=== PATIENT | male | born 1980 ===

== ENCOUNTER 2023-07-12 09:03 | Emergency (ER) | payer OTHER ==
[~2023-07-12] VITALS: Ht 170 cm; Wt 95.0 kg
--- NOTE | 2023-07-12 09:26 | ED GI ---
General Chief Complaint: Abdominal/GI Problems Stated Complaint: ABD PAIN | HERNIA Source of Information: Patient Exam Limitations: No Limitations History of Present Illness Date Seen by Provider: Jul 12, 2023 Time Seen by Provider: 09:24 Initial Comments 6-year-old male presents with concerns of hernia. States he went to a walk-in c linic and was told he has a hernia Francisco plicas. He does have a "Walter "bellybutton. There is no tenderness, no warmth or erythema. Discussed that hernia is more likely just a fat hernia that is reducible patient states he never has problems with reducing it. States 3 days ago he felt a sharp pain to the left of his umbilicus which comes and goes and he was concerned for worsen ing hernia. Exam is benign no evidence of hernia or other significant pathology. Does have some mild discomfort with palpation of the abdominal muscles however this is on the bilateral sides. Patient reassured. Will obtain ultrasound Timing/Duration: 2-3 Days Severity/Quality: Mild Location: Periumbilical Radiation: No Radiation Activities at Onset: None Associated Symptoms: Denies Symptoms Allergies and Home Medications Allergies Coded Allergies: No Known Drug Allergies (Unverified , 07/12/23) Patient Home Medication List Home Medication List Reviewed: Yes Review of Systems Review of Systems Constitutional: no symptoms reported EENTM: No Symptoms Reported Respiratory: No Symptoms Reported Cardiovascular: No Symptoms Reported Gastrointestinal: See HPI, Abdominal Pain Genitourinary: No Symptoms Reported Musculoskeletal: no symptoms reported Skin: no symptoms reported Psychiatric/Neurological: No Symptoms Reported Endocrine: No Symptoms Reported Hematologic/Lymphatic: No Symptoms Reported All Other Systems Reviewed Negative Unless Noted: Yes Past Ojbxwbt-[id number]-Upkyrg Hx Patient Social History Tobacco Use?: No Substance use?: No Alcohol Use?: Yes Alcohol Frequency: Once in a while Past Medical History Surgery/Hospitalization HX: DENIES Physical Exam Vital Signs Vital Signs - First Documented 07/12/23 09:10 Temp 36.8 Pulse 73 Resp 14 B/P (MAP) 121/82 (95) Pulse Ox 97 O2 Delivery Room Air Capillary Refill : Height/Weight/BMI Height: '" Weight: lbs. oz. kg; BMI Method: General Appearance: WD/WN, no apparent distress HEENT: PERRL/EOMI, normal ENT inspection Neck: non-tender, full range of motion, supple, normal inspection Respiratory: chest non-tender, lungs clear, normal breath sounds, no respiratory distress, no accessory muscle use Cardiovascular: normal peripheral pulses, regular rate, rhythm Peripheral Pulses: 2+ Carotid (R), 2+ Carotid (L), 2+ Femoral (R), 2+ Femoral (L), 2+ Dorsalis Pedis (R), 2+ Left Dors-Pedis (L), 2+ Radial Pulses (R), 2+ Radial Pulses (L) Gastrointestinal: normal bowel sounds, soft, no organomegaly, no pulsatile mass, tenderness (Mild to the left of the umbilicus with palpation of the abdominal muscle) Extremities: normal range of motion, non-tender, normal capillary refill Back: normal inspection, no CVA tenderness 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 He states he was told he has a hernia. He has a very small umbilical hernia that is r educible no bowel entrapment no diarrhea or constipation no significant pain no erythema or warmth is consistent with the fact containing hernia. He states he has pain to the left side of his umbilicus and was concerned about this. Pain is reproducible with palpation however I do not appreciate any abnormalities on exam. Exam is equal bilateral to the umbilicus. Feels consistent with abdominal wall muscle. No pain out of proportion to exam. He allows me to palpate both sides of the umbilicus as well as the umbilicus without distress. No nausea vomiting no other complaints. We will obtain a limited abdominal ultrasound for the patient. States he was told at the walk-in clinic that he has a hernia again this is very mild fat-containing umbilical hernia. He states he felt a sharp pain transiently over the past 3 days it comes and goes no change with bowel movement no problems urinating again no nausea or vomiting no warmth or concern for incarceration or entrapment. Ultrasound negative for acute pathology will discharge home at this time. Advised he is waiting to get a primary care appointment for surgical referral. Advised him he would not need emergent surgery at this time and more than likely will just be monitored, patient is reassured and agrees with plan for ultrasound and discharge. 0948 ultrasound shows a small amount of fluid collection no hernia nothing coming to the abdominal wall. Suspect muscle strain versus small hematoma no bruising noted however. Advised patient moist heat, he agrees. Follow-up with primary Diagnostic Imaging Diagonstic Imaging: Ultrasound (No hernia appreciated there is some edema versus muscle hematoma per endoscopy technican. We will treat as such.) Departure Impression Primary Impression: Strain of abdominal muscle Qualified Codes: S39.011A - Strain of muscle, fascia and tendon of abdomen, initial encounter Disposition: HOME, SELF-CARE Condition: Stable Departure-Patient Inst. Referrals: SULMA COLE APRN (PCP/Family) Primary Care Physician Patient Instructions: Abdominal Muscle Strain (DC) Add. Discharge Instructions: You may apply moist heat or heating pad to the area of tenderness. Be sure to hydrate well drinking a gallon of water daily. Ibuprofen or Tylenol as needed for pain. Follow-up with primary care, return for concerns or new problems. All discharge instructions reviewed with patient and/or family. Voiced understanding. TAHIR OLIVER DO Jul 12, 2023 09:26
[2023-07-12 09:56] VITALS: BP 116/79
--- NOTE | 2023-07-12 10:00 | Diagnostic Imaging Report ---
PROCEDURE: US Abdomen, limited. TECHNIQUE: Multiple realtime grayscale images were obtained over the abdomen in various projections. INDICATION: Abdominal pain and possible umbilical hernia. Sonographic interrogation of the umbilical region was performed. There is an area of heterogeneity in the region of the umbilicus measuring 2.5 x 2.2 x 2.1 cm. This could potentially represent herniated fat. No abnormal motion during Valsalva maneuver is seen. No definite bowel loop is detected. There is no fluid collection identified. IMPRESSION: There is an area of echogenic heterogeneity at the level of the umbilicus which could represent herniated fat. CT would be much more sensitive for further evaluation if clinically indicated. No definite herniated bowel loop is detected. Dictated by: Dictated on workstation # [id number]
== END 2023-07-12 09:57 | disposition home or self-care (01) ==
LOC: ER 09:07
DX: S39.011A Strain of muscle, fascia and tendon of abdomen, initial encounter (principal); X58.XXXA Exposure to other specified factors, initial encounter
CPT/HCPCS: 76705

== ENCOUNTER 2023-09-19 05:33 | Outpatient (CLI) | payer SELFPAY ==
[~2023-09-19] VITALS: Ht 167.7 cm; Wt 100.0 kg
== END 2023-09-20 11:50 | disposition home or self-care (01) ==
LOC: PREOP 05:33
PROVIDERS: ATTEND Surgery
DX: Z01.818 Encounter for other preprocedural examination (principal)